=== PATIENT | male | born 1990 | race Caucasian/White ===

== ENCOUNTER 2020-04-19 12:28 | Emergency (ER) | payer OTHER, SELFPAY ==
--- NOTE | 2020-04-19 12:30 | DI.RAD_ITS ---
EXAM: XR WRIST LT COMPLETE CLINICAL HISTORY: fall, distal pain. TECHNIQUE: 2D digital imaging was performed. COMPARISON: No exams were available for comparison FINDINGS: BONES: No acute fracture is present. No bony destructive lesion is seen. JOINTS: The carpal bones are normally aligned. SOFT TISSUE: Normal. IMPRESSION: Unremarkable radiographs of the left wrist. DATA REPOSITORY: RADIATION DOSE DELIVERED:
[2020-04-19 12:35] VITALS: BP 145/85; PULSE 86; RESP 16; TEMP 36.5; O2SAT 96
--- NOTE | 2020-04-19 12:45 | ED.GENADUL_ITS ---
Discharge Plan Disposition Patient Disposition: HOME Condition: Stable Discharge Details Chief Complaint: Orthopedic Clinical Impression: Contusion of left wrist, Abrasion Primary Care Provider: Clare,Local ED Provider: Jono Lee Home Meds and New Rx's Prescriptions: Continued albuterol sulfate 90 mcg/actuation Hfa Aerosol Inhaler 1 - 2 puff INHALATION Q4H PRN PRNRF: 0 Discharge Instructions Instructions: Contusion in Adults (ED), Abrasion (ED) Additional Instructions: Wear splint for 3 to 7 days time as needed for comfort. You may remove for bathing and for bedtime. Ice to area to reduce discomfort. Gentle soap and water cleanse, pat dry abrasions daily. Return for increasing pain, or any other acute concerns. Stand Alone Forms: Work Release Medical Decision Making 29-year-old male presents after falling into a dumpster, scraping himself and landing on outstretched left wrist. Now has left distal radius pain, without neuro or motor compromise. Referred for x-ray which does not show underlying bony fracture. Placed in a splint for comfort which he may use for comfort 5 to 7 days time and then remove. Wounds were dressed. Patient stable and appropriate for outpatient management. HPI General Mode of arrival: ambulatory . Date/Time Provider Initiated Documentation: 04/19/20 12:30 . Limitations to Documentation: no limitations . Information obtained by: patient . History of Present Illness 29 year old M presents to the emergency department with the chief complaint of Fall, left wrist injury, described as moderate, Quality is described as dull and constant, and is localized to the left and upper extremity. Patient reports no radiation. Patient started experiencing this hour(s) and it has been constant. No relieving factors improve symptom(s), and Rest improves symptom(s), Movement worsens symptoms . Patient notes other (Abrasions left wrist and back, denies significant back pain.). Patient did receive the following treatments prior to arrival, none Related Data Home Medications Medication Instructions Recorded Confirmed albuterol sulfate 1 - 2 puff INHALATION Q4H PRN PRN 04/19/20 04/19/20 Allergies Allergy/AdvReac Type Severity Reaction Status Date / Time No Known Allergies Allergy Unverified 04/19/20 12:32 General Stated Complaint: Orthopedic ALEXANDER: 5 Review of Systems Narrative: See HPI. No loss of conscious. Denies head/neck/chest/abdomen discomfort. Minimal low back pain and abrasion. 6 systems reviewed and otherwise negative Exam Narrative Exam Narrative: GEN: awake, alert, oriented 3. Pleasant, well groomed, interactive. HEAD: Normocephalic, atraumatic ENT: Mucous membranes moist, oropharynx unremarkable, External ear exam unremarkable EYES: PERRL, EOMI NECK: Full ROM, no ZIGGY, no menigismus CHEST/RESP: Nontender, clear to auscultation bilateral, no wheeze/rhonchi/rales CARDIOVASCULAR: RRR, no murmur, rub oswaldo. 2+ Rad pulse bilateral Back: Discrete lumbar abrasion without significant tenderness on exam ABDOMEN: Soft, nontender, no mass. +Bowel sounds EXT: Full ROM, tender left distal radius. Range of motion is intact but limited by pain on the left. 2+ radial pulse bilaterally. Abrasions left mid forearm. They do not penetrate through the dermis. Neuro: Grossly normal neurologic exam, conversant, interactive. Psych: Speech fluent, thoughts congruent, affect normal Course Vital Signs Vital signs: Vital Signs Temperature 36.5 C 04/19/20 12:35 Pulse 86 04/19/20 12:35 Respiratory Rate 16 04/19/20 12:35 Blood Pressure 145/85 H 04/19/20 12:35 Pulse Oximetry 96 04/19/20 12:35 Temperature 36.5 C 04/19/20 12:35 Temperature Source Temporal Artery Scan 04/19/20 12:35 Pulse 86 04/19/20 12:35 Respiratory Rate 16 04/19/20 12:35 Respiratory Effort Non-Labored 04/19/20 12:40 Blood Pressure 145/85 H 04/19/20 12:35 Blood Pressure Position Sitting 04/19/20 12:35 Pulse Oximetry 96 04/19/20 12:35 Oxygen Delivery Method Room Air 04/19/20 12:35 Oxygen Flow Rate 0 04/19/20 12:35 Pain Level 7 04/19/20 12:43
== END 2020-04-19 13:25 | disposition home or self-care (01) ==
PROVIDERS: Emergency Provider Emergency Medicine
DX: S60.812A Abrasion of left wrist, initial encounter (principal); S30.810A Abrasion of lower back and pelvis, initial encounter; W17.89XA Other fall from one level to another, initial encounter
CPT/HCPCS: 29125; 99283; 73110; L3908

== ENCOUNTER 2020-06-28 13:06 | Emergency (ER) | payer SELFPAY ==
[2020-06-28 13:10] VITALS: BP 136/98; PULSE 96; RESP 16; TEMP 36.4; O2SAT 96
[2020-06-28] MEDS: Fluorescein STRIPS 100/BOX 1 MG (13:30)
[2020-06-28] MEDS: Balanced Salt Solution 15 ML BTL (13:30)
[2020-06-28] MEDS: Tetracaine 0.5% 4 ML BTL (13:30)
--- NOTE | 2020-06-28 14:00 | W.ED.GENAD ---
Discharge Plan Disposition Patient Disposition: HOME Condition: Stable Discharge Details Clinical Impression: Sensation of foreign body in eye Primary Care Provider: Clare,Local ED Provider: Carmen Palacios Home Meds and New Rx's Prescriptions: New erythromycin 5 mg/gram (0.5 %) ointment 0.5 inch ophthalmic (eye) BID 7 Days Qty: 3.5 RF: 0 No Action albuterol sulfate 90 mcg/actuation Hfa Aerosol Inhaler 1 - 2 puff INHALATION Q4H PRN PRNRF: 0 cetirizine 10 mg Tablet 10 mg PO DAILY RF: 0 Discharge Instructions Instructions: Eye Foreign Body (ED) Additional Instructions: Use antibiotic ointment as prescribed. Follow-up with ophthalmology if symptoms persist after 2 to 3 days. Try not to rub your eye you may rinse gently with saline 2-3 times a day as needed. [address] [place] [address] ? ~1.6 mi Medical Decision Making Chand lamp exam completed with fluorescein, no visualized corneal abrasion or foreign body. Patient given saline eye rinse and instructed on use, verbalized understanding. Plan is to prescribe erythromycin eye ointment and follow-up with [facility] if symptoms persist. HPI General Mode of arrival: ambulatory. Date/Time Provider Initiated Documentation: 06/28/20 13:07. Limitations to Documentation: no limitations. Information obtained by: patient. HPI Narrative: 29-year-old male presents to the ED with foreign body sensation noted to the right eye. He states that last night he was in a warehouse and possibly a small piece of wood or dust got into his eye. He has attempted to rinse it out with saline at home with little to no relief. He is also been using his friends erythromycin eye ointment which provided a little bit of relief. Related Data Home Medications Medication Instructions Recorded Confirmed albuterol sulfate 1 - 2 puff INHALATION Q4H PRN PRN 04/19/20 06/28/20 cetirizine 10 mg PO DAILY 04/19/20 06/28/20 erythromycin 0.5 inch OPHTHALMIC (EYE) BID 7 06/28/20 Days #3.5 g Previous Rx's Medication Instructions Recorded erythromycin 0.5 inch OPHTHALMIC (EYE) BID 7 06/28/20 Days #3.5 g Allergies Allergy/AdvReac Type Severity Reaction Status Date / Time No Known Allergies Allergy Unverified 06/28/20 13:14 General Stated Complaint: EyeProblem ALEXANDER: 3 Review of Systems Narrative: Constitutional: Negative for weight loss, alert and oriented, well groomed, normal body habitus, appears comfortable. HEENT: Denies trauma, headaches, blurry vision, nasal discharge, sore throat, trouble swallowing. Reports foreign body sensation to right eye since yesterday. Chest: Denies chest pain, palpitations, irregular rhythm, hypertension. Respiratory: Denies Shortness of breath, cough, hemoptysis. GI: Denies abdominal pain, nausea, vomiting, diarrhea, constipation. : Denies dysuria, hematuria, flank pain, rectal bleeding. Neuro: Denies dizziness, blurry vision, weakness, syncope, headache or facial numbness. Hematologic: Denies easy bruising, intolerance to heat or cold, hair loss. [facility] Social History Smoking/Tobacco Use Status: Never Alcohol Intake: current Alcohol Intake frequency: 0-2 drinks per day Alcohol type: beer Substance use type: does not use Exam Narrative Exam Narrative: Constitutional: Alert and oriented x3. Appears stated age. Normal body habitus. Head: Normocephalic, no trauma. Eyes: Pupils PERRLA, Red reflex noted, EOM's intact. Eyelids symmetrical without lesions, discharge, or swelling. ENT: Bilateral TM's WNL, External ear normal to inspection, no mastoid TTP, swelling, or erythema, Nasal turbinates WNL, no nasal discharge. Normal dentition, Posterior pharynx WNL, no exudate. Chest: RRR, Normal S1, S2, distal pulses intact. Resp: Lungs clear to auscultation bilaterally, no wheezes, rales, or rhonchi. Musculoskeletal: Normal gait, 5/5 strength to all four extremities. Skin: No suspicious rashes or lesions. Capillary refill less than 2 sec. Neurologic: Cranial nerves II-XII intact. Alert and oriented x 3. DTR's intact. Hematologic/Lymphatic: No ecchymosis, no lymphadenopathy. Eyes Alignment and Position: alignment normal Periorbital: periorbital findings normal Eyelids: eyelids normal Conjunctivae: conjunctivae normal Cornea: corneas normal and fluorescein used (No uptake in dye, no corneal abrasion) Pupils: PERRL and normal by confrontation EOM: EOM intact bilaterally Direct ophthalmoscopy: normal light reflex Course Vital Signs Vital signs: Vital Signs Temperature 36.4 C L 06/28/20 13:10 Pulse 96 H 06/28/20 13:10 Respiratory Rate 16 06/28/20 13:10 Blood Pressure 136/98 H 06/28/20 13:10 Pulse Oximetry 96 06/28/20 13:10 Temperature 36.4 C L 06/28/20 13:10 Temperature Source Skin 06/28/20 13:10 Pulse 96 H 06/28/20 13:10 Respiratory Rate 16 06/28/20 13:10 Respiratory Effort Non-Labored 06/28/20 13:10 Blood Pressure 136/98 H 06/28/20 13:10 Blood Pressure Position Sitting 06/28/20 13:10 Pulse Oximetry 96 06/28/20 13:10 Oxygen Delivery Method Room Air 06/28/20 13:10 Oxygen Flow Rate 0 06/28/20 13:10 Pain Level 7 06/28/20 13:10
== END 2020-06-28 14:22 | disposition home or self-care (01) ==
PROVIDERS: Emergency Provider Registered Nurse Emergency
DX: H57.11 Ocular pain, right eye (principal)
CPT/HCPCS: 99283